=== PATIENT | male | born 1990 | race Caucasian/White ===

== ENCOUNTER 2021-10-28 03:30 | Emergency (ER) | payer BC, SELFPAY ==
[2021-10-28 03:36] VITALS: BP 125/83; PULSE 73; RESP 18; TEMP 35.9; O2SAT 96; BMI 28.4
--- NOTE | 2021-10-28 03:48 | CRLHL7_ITS ---
For Patients: As a result of the Cures Act, medical imaging exams and procedure reports are released immediately into your electronic medical record. You may view this report before your referring provider. If you have questions, please contact your health care provider. INDICATION: Left lower quadrant abdominal pelvic pain TECHNIQUE: CT Abdomen and pelvis without i.v. contrast. Coronal and sagittal reformats were obtained. COMPARISON: None FINDINGS: Lower chest: Unremarkable. Liver: Unremarkable. Spleen: Unremarkable. Pancreas: Unremarkable. Gallbladder: Unremarkable. Kidney: Unremarkable. No kidney or ureteral stones or obstruction seen. Adrenal: Unremarkable. Bowel: A sac-like collection of decompressed small bowel loops are present in the left flank, suggestive of a nonobstructing internal hernia such is a left paraduodenal hernia. The appendix is not identified. Vascular: Unremarkable. Lymph: Unremarkable. Peritoneum: Unremarkable. No pneumoperitoneum is seen. No significant ascites is noted. Pelvis: Unremarkable. Soft tissue: Unremarkable. Bone: Unremarkable for age. IMPRESSION: 1. A sac-like collection of decompressed small bowel loops are present in the left flank, suggestive of a nonobstructing internal hernia such is a left paraduodenal hernia. Dictated by Brooks Johnson MD @ 10/28/2021 4:07:11 AM Please note that all CT scans at this facility use dose modulation, iterative reconstruction, and/or weight-based dosing when appropriate to reduce radiation dose to as low as reasonably achievable. Dictated by: Brooks Johnson MD @ 10/28/2021 04:07:17 (Electronically Signed)
--- NOTE | 2021-10-28 03:49 | ED_ITS ---
HPI - General Adult General Time Seen by Provider: 03:49 Date Seen: 10/28/21 Chief complaint: Abdominal Pain Stated complaint: Stomach Pain Time Seen by Provider: 10/28/21 03:43 Source: patient Mode of arrival: ambulatory Limitations: no limitations History of Present Illness HPI narrative: 31-year-old male who comes in with left lower quadrant pain for the last 4 h ours. Pain is constant, worse with movement. Does tend to go up and down. Had some vomiting initially but that is resolved. No diarrhea. No fever chills. No urinary symptoms. Has not taken anything for this. No radiation into the flank or scrotum. Related Data Home Medications Medication Instructions Recorded Confirmed duloxetine 10/28/21 Allergies Allergy/AdvReac Type Severity Reaction Status Date / Time No Known Drug Allergies Allergy Verified 10/28/21 03:40 Review of Systems Status of ROS: Reports: 10 or more systems reviewed and unremarkable except as noted in History and below PFSH PFSH Social History Smoking Status: Former smoker How often do you have a drink containing alcohol: 2-3 times a week AUDIT-C Alcohol total score: 3 Non-prescribed substance use: denies use Exam Const: Vital Signs, click to edit/add: Vital Signs - 24 hr 10/28/21 03:36 Temperature 96.6 F L Pulse Rate [Right Pulse Oximeter] 73 Respiratory Rate 18 Blood Pressure [Ri ght Upper Arm] 125/83 Pulse Oximetry 96 Oxygen Delivery Me thod Room Air Documenting provider has reviewed patient's vital signs: yes Common normals: no apparent distress, oriented x3, alert and well nourished HENMT: Common normals: normocephalic, head/scalp atraumatic, external ears normal and external nose normal Head and scalp: normocephalic and atraumatic Nose: external nose normal External ear: external ears normal Eye: Common normals: PERRL and conjunctivae normal Conjunctiva: conjunctiva(e) normal Pupil: PERRL Neck & C-Spine: Common normals: full ROM, no lymphadenopathy and supple Chest: Common normals: palpation of chest normal Resp: Common normals: normal respiratory effort and clear to auscultation bilaterally Auscultation: clear to auscultation bilaterally Cardio: Common normals: regular rate, regular rhythm and no murmurs Rate: regular rate Rhythm: regular rhythm GI: Common normals: Normal to inspection, nondistended, normoactive bowel sounds present and soft to palpation Palpation: soft and tender Details: LLQ and LUQ : Common normals: no CVA tenderness Bladder/kidney exam: no CVA tenderness Back & Pelvis: Common normals: no CVA tenderness and thoracic and lumbar spine normal to inspection Extremity: Common normals: normal to inspection, full ROM and no pedal edema Neuro: Common normals: oriented x3, CN's II-XII intact bilaterally and no focal motor deficits Sensorium/orientation: alert Psych: Common normals: mental status grossly normal Skin: Common normals: no rashes or lesions noted General skin exam: no rashes or lesions noted Course Course Hospital Course: Patient seen and examined, prior records reviewed. Differential diagnosis includes but not limited to diverticulitis, colitis, gastritis, constipation, kidney stone. Patient with left lower quadrant pain for about 4 hours, appears uncomfortable on exam, pain is worse with movement and he has left upper and left lower quadrant tenderness. Labs ordered along with CT scan, Toradol and Zofran for symptom management. Reevaluation(s) Reevaluation #1: Labs are reassuring. CT scan demonstrates possible internal hernia without signs of obstruction. Patient is still quite uncomfortable, Dilaudid IV is ordered and will continue to monitor, flu to consult with surgery left labs are returned. Time: 04:48 Reevaluation #2: Care discussed with Dr. Donovan of general surgery. She will review patient's CT scan and call back. Patient recheck. Pain is completely resolved at this point, did not receive Dilaudid. We discussed findings on CT scan. Patient may have an internal hernia that was transiently obstructed or incarcerated and now has released. Will discuss with surgery. Patient has no abdominal distention or vomiting to suggest obstruction at this time. Time: 05:48 Reevaluation #3: Dr. Donovan evaluated the patient emergency department. He is concerned about having surgery and has decided that he would like to wait. He will follow-up with Dr. Donovan next week. Discussed return to emergency department precautions with the patient. Time: 07:44 Vital Signs Vital signs: Initial Vital Signs Temperature 96.6 F L 10/28/21 03:36 Temperature Source Temporal Artery Scan 10/28/21 03:36 Pulse Rate 73 10/28/21 03:36 Respiratory Rate 18 10/28/21 03:36 Blood Pressure 125/83 10/28/21 03:36 Blood Pressure Mean 97 10/28/21 03:36 Blood Pressure Position Sitting 10/28/21 03:36 Pulse Oximetry 96 10/28/21 03:36 Oxygen Delivery Method 10/28/21 03:36 Vital Signs Temperature 96.6 F L 10/28/21 03:36 Pulse Rate 73 10/28/21 03:36 Respiratory Rate 18 10/28/21 03:36 Blood Pressure 125/83 10/28/21 03:36 Pulse Oximetry 96 10/28/21 03:36 Oxygen Delivery Method 10/28/21 03:36 Temperature 96.6 F L 10/28/21 03:36 Pulse Rate 73 10/28/21 03:36 Respiratory Rate 18 10/28/21 03:36 Blood Pressure 125/83 10/28/21 03:36 Pulse Oximetry 96 10/28/21 03:36 Oxygen Delivery Method 10/28/21 03:36 Medical Decision Making Medical Records Medical records reviewed: Yes I reviewed the patient's medical records Lab Data Lab results reviewed: Yes I reviewed the patient's lab results Labs: Lab Results 10/28/21 10/28/21 10/28/21 Range/Units 04:00 04:00 04:15 WBC 4.53 (4.50-11.00) K/uL RBC 5.16 (4.30-5.90) m/uL Hgb 15.0 (13.5-17.5) gm/dL Hct 43.0 (37.0-53.0) % MCV 83 (80-100) fL MCH 29 (26-34) pg MCHC 35 (32-36) gm/dL RDW Coeff of Jaqueline 13.0 (11.5-15.5) % Plt Count 237 (140-440) K/uL Neut % (Auto) 49.1 (42.0-72.0) % Lymph % (Auto) 39.7 (20-44) % [place] % (Auto) 8.6 (0.0-11.0) % Eos % (Auto) 2.2 (0.0-7.0) % Baso % (Auto) 0.4 (0.0-3.0) % Neut # (Auto) 2.22 (1.7-7.0) K/uL Lymph # (Auto) 1.80 (0.90-2.90) K/uL [place] # (Auto) 0.40 (0.00-0.90) K/UL Eos # (Auto) 0.10 (0.00-0.50) K/uL Baso # (Auto) 0.02 (0.00-0.30) K/uL Abs Immat Gran (auto) 0.00 (0.00-0.30) K/uL Sodium 139 (135-149) mmol/L Potassium 4.1 (3.6-5.1) mmol/L Chloride 104 (96-114) mmol/L Carbon Dioxide 27 (20-32) mmol/L BUN 24 (5-24) mg/dL Creatinine 1.0 (0.5-1.5) mg/dL Estimated Creat Clear 120.96 Estimated GFR 103 ml/min Glucose 108 (60-115) mg/dL Lactate (0.5-1.9) mmol/L Calcium 9.7 (8.4-10.6) mg/dL Total Bilirubin 0.5 (0.1-1.5) mg/dL Direct Bilirubin 0.1 (0.0-0.5) mg/dL AST 44 H (12-35) U/L ALT 31 (4-50) U/L Alkaline Phosphatase 66 (40-150) U/L Total Protein 7.5 (6.0-8.3) g/dL Albumin 4.5 (3.3-5.0) g/dL Lipase 102 (23-300) U/L Urine Color (Yellow) Urine Appearance (Clear) Urine pH (5.0-8.5) Ur Specific [place] (1.000-1.030) Urine Protein (Negative) Urine Glucose (UA) (Negative) Urine Ketones (Negative) Urine Blood (Negative) Urine Nitrite (Negative) Urine Bilirubin (Negative) Urine Urobilinogen (0.2-1.0) Ur Leukocyte Esterase (Negative) SARS-CoV-2 (PCR) (Negative) Influenza Type A (PCR) (Negative) Influenza Type B (PCR) (Negative) 10/28/21 10/28/21 10/28/21 Range/Units 04:15 04:35 04:49 WBC (4.50-11.00) K/uL RBC (4.30-5.90) m/uL Hgb (13.5-17.5) gm/dL Hct (37.0-53.0) % MCV (80-100) fL MCH (26-34) pg MCHC (32-36) gm/dL RDW Coeff of Jaqueline (11.5-15.5) % Plt Count (140-440) K/uL Neut % (Auto) (42.0-72.0) % Lymph % (Auto) (20-44) % [place] % (Auto) (0.0-11.0) % Eos % (Auto) (0.0-7.0) % Baso % (Auto) (0.0-3.0) % Neut # (Auto) (1.7-7.0) K/uL Lymph # (Auto) (0.90-2.90) K/uL [place] # (Auto) (0.00-0.90) K/UL Eos # (Auto) (0.00-0.50) K/uL Baso # (Auto) (0.00-0.30) K/uL Abs Immat Gran (auto) (0.00-0.30) K/uL Sodium (135-149) mmol/L Potassium (3.6-5.1) mmol/L Chloride (96-114) mmol/L Carbon Dioxide (20-32) mmol/L BUN (5-24) mg/dL Creatinine (0.5-1.5) mg/dL Estimated Creat Clear Estimated GFR ml/min Glucose (60-115) mg/dL Lactate 0.7 (0.5-1.9) mmol/L Calcium (8.4-10.6) mg/dL Total Bilirubin (0.1-1.5) mg/dL Direct Bilirubin (0.0-0.5) mg/dL AST (12-35) U/L ALT (4-50) U/L Alkaline Phosphatase (40-150) U/L Total Protein (6.0-8.3) g/dL Albumin (3.3-5.0) g/dL Lipase (23-300) U/L Urine Color Yellow (Yellow) Urine Appearance Clear (Clear) Urine pH 6.0 (5.0-8.5) Ur Specific [place] 1.025 (1.000-1.030) Urine Protein Negative (Negative) Urine Glucose (UA) Negative (Negative) Urine Ketones Negative (Negative) Urine Blood Negative (Negative) Urine Nitrite Negative (Negative) Urine Bilirubin Negative (Negative) Urine Urobilinogen 0.2 (0.2-1.0) Ur Leukocyte Esterase Negative (Negative) SARS-CoV-2 (PCR) Negative SARS-CoV-2 (Negative) Influenza Type A (PCR) Negative PCR FLU A (Negative) Influenza Type B (PCR) Negative PCR FLU B (Negative) Imaging Data CT scan - abdomen: Attestation: I have reviewed the pertinent imaging results. Radiologist's impression: 1. A sac-like collection of decompressed small bowel loops are present in the left flank, suggestive of a nonobstructing internal hernia such is a left paraduodenal hernia. Discharge Plan Discharge Clinical Impression: Abdominal pain Patient Disposition: Home, Self-Care Condition: Improved Instructions: Abdominal Pain (ED) Additional Instructions: Your abdominal pain may be due to an internal hernia which is an abnormal opening in the connective tissue of the abdomen. If part of the intestine goes through this opening a can cause pain. Fortunately, since her pain is resolved, it is likely that the intestine has come out of the hernia. You can have recurrence of this symptom. If the pain comes back, especially few of abdominal distension or nausea vomiting which would signal blockage, return to the emergency department. Follow-up with Dr. Donovan of general surgery next week phone number [phone] Activity Level: No Restrictions Discharge Diet: Regular Prescriptions: No Action duloxetine Follow Up/Referrals: Macho Donovan MD [Staff Physician] - Stand Alone Forms: [employer] Info Instructions
[2021-10-28 04:03] LABS: Basophils Absolute Auto 0.02 K/uL (0.00-0.30); Basophils Percent Auto 0.4 % (0.0-3.0); Eosinophils Percent Auto 2.2 % (0.0-7.0); Lymphocytes Percent Auto 39.7 % (20-44); Mean Corpuscular HGB Conc 35 gm/dL (32-36); Mean Corpuscular Hemoglobin 29 pg (26-34); Mean Corpuscular Volume 83 fL (80-100); Monocytes Percent Auto 8.6 % (0.0-11.0); Neutrophils Absolute Auto 2.22 K/uL (1.7-7.0); Neutrophils Percent Auto 49.1 % (42.0-72.0); Platelet Count* 237 K/uL (140-440); Red Blood Count 5.16 m/uL (4.30-5.90); White Blood Count* 4.53 K/uL (4.50-11.00)
[2021-10-28] MEDS: ONDANSETRON 2 MG/ML inj 4 MG IVP (04:03)
[2021-10-28] MEDS: KETOROLAC 15 MG/ML inj IVP (04:03)
[2021-10-28 04:12] LABS: Slide Review Reflex No
[2021-10-28 04:18] LABS: Lactate* 0.7 mmol/L (0.5-1.9)
[2021-10-28 04:18] LABS: Chloride* 104 mmol/L (96-114); Potassium* 4.1 mmol/L (3.6-5.1); Sodium* 139 mmol/L (135-149)
[2021-10-28 04:21] LABS: Blood Urea Nitrogen* 24 mg/dL (5-24); Calcium* 9.7 mg/dL (8.4-10.6); Carbon Dioxide* 27 mmol/L (20-32); Est. Creatinine Clearance* 120.96; Estimated Glomerular Filt Rate 103 ml/min; Glucose* 108 mg/dL (60-115)
[2021-10-28 04:28] LABS: Albumin* 4.5 g/dL (3.3-5.0)
[2021-10-28 04:31] LABS: Alanine Aminotransferase* 31 U/L (4-50); Alkaline Phosphatase* 66 U/L (40-150); Aspartate Amino Transferase* 44 U/L (12-35); Bilirubin Direct* 0.1 mg/dL (0.0-0.5); Bilirubin Total* 0.5 mg/dL (0.1-1.5); Lipase* 102 U/L (23-300); Total Protein* 7.5 g/dL (6.0-8.3)
--- NOTE | 2021-10-28 04:50 | ED.NURSE ---
Pt had been on knees at BS with pain, but now offered pain medication and pain has improved. pt drove here and is from out of town
[2021-10-28 04:55] LABS: Appearance Urine Clear (Clear); Bilirubin Urine Negative (Negative); Blood Urine Negative (Negative); Color Urine Yellow (Yellow); Glucose Urine Negative (Negative); Ketones Urine Negative (Negative); Leukocyte Esterase Urine Negative (Negative); Nitrite Urine Negative (Negative); Protein Urine Negative (Negative); Specific Gravity Urine 1.025 (1.000-1.030); Urobilinogen Urine 0.2 (0.2-1.0)
[2021-10-28 05:33] LABS: PCR FLU A Negative PCR FLU A (Negative); PCR FLU B Negative PCR FLU B (Negative)
[2021-10-28 05:39] LABS: SARS PCR* Negative SARS-CoV-2 (Negative)
--- NOTE | 2021-10-28 07:46 | PM.GSCN ---
History of Present Illness Consult details Date Seen: 10/28/21 Consult date: 10/28/21 Narrative: 31-year-old male presented to emergency room with vomiting and severe abdominal pain and I was asked by Dr. Stevenson to see him in consultation. Patient states that he developed left-sided abdominal pain all of a sudden at 11:30 p.m. at night. The pain was sharp and severe. He vomited multiple times until 1 in the morning. His pain was not improving and he decided to present to the emergency room. Patient had no prior similar episodes. In the emergency room patient was found to have normal CBC and BMP. His liver function tests were normal. Abdominal CT was obtained that showed a left paraduodenal sac containing decompressed small intestine. This was concerning for an internal hernia. The small intestine was not dilated. 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 Smoking Status: Former smoker How often do you have a drink containing alcohol: 2-3 times a week AUDIT-C Alcohol total score: 3 Non-prescribed substance use: denies use Meds Home Medications and Allergies Home Medications Medication Instructions Recorded Confirmed Type duloxetine 10/28/21 History Allergies Allergy/AdvReac Type Severity Reaction Status Date / Time No Known Drug Allergies Allergy Verified 10/28/21 03:40 Exam Narrative: Exam Narrative: General appearance: Alert, cooperative, and in no distress Pulmonary: Chest symmetric, lungs clear bilaterally Cardiovascular Heart: Regular rate and rhythm, S1, S2, no murmurs/rubs/gallops Gastrointestinal Abdominal: soft, not distended, minimally tender to palpation in the left upper quadrant with no peritoneal signs. Skin: Normal skin color, texture, and turgor. No rashes or lesions. Psychiatric: Alert, cooperative, normal affect. Const: Vital Signs, click to edit/add: Vital Signs - 24 hr 10/28/21 03:36 Temperature 96.6 F L Pulse Rate [Right Pulse Oximeter] 73 Respiratory Rate 18 Blood Pressure [Ri ght Upper Arm] 125/83 Pulse Oximetry 96 Oxygen Delivery Me thod Room Air Results Labs Labs: Abnormal lab results 10/28/21 Range/Units 04:15 AST 44 H (12-35) U/L Diabetes panel 10/28/21 10/28/21 Range/Units 04:00 04:15 Sodium 139 (135-149) mmol/L Potassium 4.1 (3.6-5.1) mmol/L Chloride 104 (96-114) mmol/L Carbon Dioxide 27 (20-32) mmol/L BUN 24 (5-24) mg/dL Creatinine 1.0 (0.5-1.5) mg/dL Glucose 108 (60-115) mg/dL Calcium 9.7 (8.4-10.6) mg/dL AST 44 H (12-35) U/L ALT 31 (4-50) U/L Alkaline Phosphatase 66 (40-150) U/L Total Protein 7.5 (6.0-8.3) g/dL Albumin 4.5 (3.3-5.0) g/dL Calcium panel 10/28/21 10/28/21 Range/Units 04:00 04:15 Calcium 9.7 (8.4-10.6) mg/dL Albumin 4.5 (3.3-5.0) g/dL Pituitary panel 10/28/21 Range/Units 04:00 Sodium 139 (135-149) mmol/L Potassium 4.1 (3.6-5.1) mmol/L Chloride 104 (96-114) mmol/L Carbon Dioxide 27 (20-32) mmol/L BUN 24 (5-24) mg/dL Creatinine 1.0 (0.5-1.5) mg/dL Glucose 108 (60-115) mg/dL Calcium 9.7 (8.4-10.6) mg/dL Adrenal panel 10/28/21 10/28/21 Range/Units 04:00 04:15 Sodium 139 (135-149) mmol/L Potassium 4.1 (3.6-5.1) mmol/L Chloride 104 (96-114) mmol/L Carbon Dioxide 27 (20-32) mmol/L BUN 24 (5-24) mg/dL Creatinine 1.0 (0.5-1.5) mg/dL Glucose 108 (60-115) mg/dL Calcium 9.7 (8.4-10.6) mg/dL Total Bilirubin 0.5 (0.1-1.5) mg/dL AST 44 H (12-35) U/L ALT 31 (4-50) U/L Alkaline Phosphatase 66 (40-150) U/L Total Protein 7.5 (6.0-8.3) g/dL Albumin 4.5 (3.3-5.0) g/dL All other labs normal. Imaging Abdomen CT scan report/results: image reviewed Assessment and Plan Assessment and plan (1) Internal hernia: Status: Acute Plan 31-year-old male presented to emergency room with acute abdominal pain that could be due to a left-sided internal hernia and possible gut malrotation. I discussed with the patient his laboratory and CT findings. On CT patient has the sac like structure containing decompressed loops of small intestine on the left side. His duodenum appears to be on the right side and I do not see it tracing to cross the midline. His appendix was not visualized. These findings are concerning for congenital malrotation. I suspect that patient's abdominal pain could have been caused by internal hernia containing small bowel. Patient is currently pain free. I recommended to proceed with exploratory laparotomy and possible [place] procedure. 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 I had a very long discussion with him explaining the danger of not proceeding with surgery and incarceration of his internal hernia that could lead to necrotic small bowel, emergency surgery, future small gut syndrome, and possible . Patient understood the risks and elected to discharge home. He will plan on following up with me in clinic to discuss the surgery at a near future.
== END 2021-10-28 07:50 | disposition home or self-care (01) ==
PROVIDERS: Emergency Provider Family Medicine
DX: R10.32 Left lower quadrant pain (principal)
CPT/HCPCS: 36415; 74176; 80048; 80076; 81003; 83605; 83690; 85025; 87502; 87635; 96374; 96375; 99284; 99285; J1885; J2405

== ENCOUNTER 2021-11-09 10:50 | Inpatient (IN) | payer BC, SELFPAY ==
[2021-11-09] VITALS (25 sets, daily range): BP systolic 88–126; BP diastolic 40–93; PULSE 53–86; RESP 16–24; TEMP 36.4–37.5; O2SAT 94–99; BMI 28.3
[2021-11-09] MEDS: LACTATED RINGERS 1000 ML 1,000 ML 100 ML IV ×3 (11:15→17:27)
[2021-11-09] MEDS: fentaNYL 100 MCG/2 ML inj IVP (11:30)
[2021-11-09] MEDS: MIDAZOLAM HCL 1 MG/ML inj IVP (11:30)
--- NOTE | 2021-11-09 11:31 | PM.GSHP ---
History of Present Illness History of Present Illness Date Seen: 11/09/21 Chief complaint: surgery Narrative: Demian Calzada is a 31 year old male presented To clinic for follow-up on his abdominal pain. Patient was recently seen in the emergency room department with severe onset of abdominal pain. A CT scan showed periduodenal hernia with no dilated loops of bowel in that hernia. I recommended to proceed with exploratory laparotomy due to concern for malrotation and internal hernia however patient's pain resolved, and he did not want to miss time off of work. Patient presented today to clinic in severe pain again. Patient states that today the pain started at 9:30 a.m. in the morning. The pain was in the same location and felt the same as 2 weeks ago. He did not have any nausea or vomiting. In the last 2 weeks he was doing well and tolerating regular diet. 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 Smoking Status: Former smoker How often do you have a drink containing alcohol: 2-3 times a week AUDIT-C Alcohol total score: 3 Non-prescribed substance use: denies use Meds Home Medications and Allergies Home Medications Medication Instructions Recorded Confirmed Type duloxetine 10/28/21 11/09/21 History Allergies Allergy/AdvReac Type Severity Reaction Status Date / Time No Known Drug Allergies Allergy Verified 10/28/21 03:40 Exam Narrative: Exam Narrative: General appearance: Alert, cooperative, and in no distress Pulmonary: Chest symmetric, lungs clear bilaterally Cardiovascular Heart: Regular rate and rhythm, S1, S2, no murmurs/rubs/gallops Gastrointestinal Abdominal: soft, not distended, tender to palpation in the left mid abdomen and tender to percussion in the left mid abdomen, patient feels pain in the left abdomen when palpating on the right. Skin: Normal skin color, texture, and turgor. No rashes or lesions. Psychiatric: Alert, cooperative, normal affect. Assessment and Plan Assessment and plan (1) Abdominal pain: Status: Acute Plan 31-year-old male presented to clinic with a new onset of severe abdominal pain that is similar to his episode 2 weeks ago and concerning for an internal hernia. I discussed with the patient my clinical findings. I suspect that patient has recurrence of his pain since his internal hernia has not been addressed. I gave patient 2 options -1 is going to the emergency room and obtaining another CT scan to evaluate if there are any new findings since 2 weeks ago. The other option is to proceed with exploratory laparotomy since his pain feels the same as it did 2 weeks ago and pretty severe. Patient has been hunched over on the floor of the clinic room due to pain. Patient would like to proceed with surgery. The procedure of exploratory laparotomy was discussed in detail. The risks associated the procedure including infection, bleeding, the need for possible bowel resection, and possible [place] procedure that includes appendectomy were all discussed with the patient, and he agreed to proceed. Patient will be admitted to the hospital postoperatively.
[2021-11-09] MEDS: CEFAZOLIN 2 GM INJ IVP (12:05)
[2021-11-09 13:06] LABS: SARS PCR* Negative SARS-CoV-2 (Negative)
[2021-11-09] MEDS: BUPIVACAINE 0.25 %/EPI 1:200K 30 ml INJECTION (14:32)
--- NOTE | 2021-11-09 14:55 | P.GSOP_ITS ---
Operative Note Date of procedure: 11/09/21 Type of Procedure: 1. Exploratory laparotomy. 2. Lysis of adhesions with reduction of paraduodenal hernia. 3. Incidental Appendectomy. Procedure Description: After discussing the risks and benefits of the procedure, the patient signed informed consent.? The operative site was marked and the patient was brought to the operating room and placed on the operating table in supine position.? Care was taken to pad the patient's pressure points.?? The patient was then intubated by anesthesia.? Lau catheter was placed under sterile conditions.? The operative site was then prepped and draped in the usual sterile fashion.? A time-out was then performed. A midline laparotomy incision was made with a scalpel in the superior abdomen and curving on the left side of the umbilicus. Subcutaneous fat and anterior fascia were incised with cautery. The anterior fascia was grasped with Tarun clamps and posterior fascia and peritoneum were identified and grasped with Sarah clamps. The abdomen was entered with Metzenbaum scissors. This incision was then extended superiorly and inferiorly with cautery. By palpation and then visualization no adhesions to the anterior abdominal wall were noted. A large Watson retractor was placed into the incision. I turned my attention to the left side of the abdomen. There was a thin hernia sac covering small intestine on the left side of the abdomen. The intestine was reduced from this hernia sac and was viable. I then proceeded with excision of the hernia sac. The hernia sac appeared to be lateral to the ligament of Treitz and was extending from the distal transver se colon mesentery inferiorly and medial to the descending colon mesentery. This hernia sac was fairly vascular. This was most likely a hernia through fossa of [place]. With careful dissection the hernia sac was mobilized off the colon mesentery. The transverse colon and descending colon mesentery was examined so that it is not divided when the hernia sac was excised. The hernia sac was thin and excised with cautery. A larger vessel going into the hernia sac was divided with clamps and ties. I was not able to preserve this without leaving an opening for small bowel herniation. The small bowel was run from the ligament of Treitz to the terminal ileum. The ligament of Treitz was in place arguing against malrotation. The right and left colon were also in their normal locations.The jejunum had chronic dilation to slightly larger than normal in size. The proximal ileum had inflammatory thickened adhesions of the small bowel mesentery to the proximal transverse colon mesentery and omentum. Those adhesions were carefully taken down with cautery and with Metzenbaum scissors to avoid injury to the small bowel mesentery. A small nodule was identified adjacent to the small bowel lumen in the proximal ileum. It was difficult to tell if this was a small diverticulum or inflammatory nodule. This was excised with cautery and Metzenbaum scissors. The area where it seemed to be attached to the small intestine was oversewn with 3-0 silk suture. This nodule was sent to pathology. The thickened inflammatory tissue overlying the small bowel mesentery was lysed with cautery by gently scoring the peritoneum overlying the small intestine. The small bowel mesentery did not appear to be foreshortened. no additional adhesions were noted. I elected to proceed with incidental appendectomy. The cecum was fairly redundant and located in the right pelvis. This was gently grasped and an appendix was visualized. The appendix was long but no inflammation was noted. The appendiceal mesentery was divided with cautery and clamps and Vicryl ties. The appendix was then clamped with a clamp at the base cysts and tied just distal to the clamp with 0-0 Vicryl tie and 2-0 Vicryl tie. The appendix was divided just below the clamp with a scalpel and sent to pathology. Appendiceal mucosa was cauterized. Surgical field was examined and no bleeding was identified. The small bowel mesentery was gently placed on the right side of the abdomen. Omentum was placed over the small intestine. The fascia of the midline incision was then closed with 2 running 0-0 Maxon hoffman tures. The midline incision was irrigated with normal saline. Local anesthetic was injected at the midline incision. The dermis was then reapproximated with 3-0 Vicryl suture. The skin was closed with a running 4-0 Monocryl stitch. The Lau catheter was removed at the end of the procedure. Steri-Strips and sterile dressings were placed over the midline incision. All counts were correct at the end of the case. ? The patient was then woken and transported to the recovery area in stable condition. ? The patient tolerated the procedure well. Findings: Left-sided paraduodenal hernia. Anesthesia: GETA Surgeon: Macho Donovan MD Estimated blood loss (mL): 10 Condition: stable Disposition: PACU
--- NOTE | 2021-11-09 15:05 | SUR.OPER ---
RYAN REMOVED AT THE END OF THE CASE. TIP INTACT.
[2021-11-09] MEDS: MEPERIDINE 25 MG/ML INJ 12.5 MG IVP (15:10)
--- NOTE | 2021-11-09 15:11 | W.ANESCHARGE ---
Anesthesia Charges Start Date/Time Anesthesia Start Date: 11/09/21 Anesthesia Start Time: 11:50 Stop Date/Time Anesthesia Stop Date: 11/09/21 Anesthesia Stop Time: 15:04 Summary Emergency: Yes
[2021-11-09] MEDS: fentaNYL 100 MCG/2 ML inj 50 MCG IVP (15:40)
[2021-11-09] MEDS: HYDROmorphone 0.5 mg/0.5 ml inj IVP ×4 (17:28→23:04)
--- NOTE | 2021-11-09 22:44 | PC.NURSE ---
Shift [id number]- Patient arrives to floor at approximately 1600. He is drowsy, BPs are decreased- see charting. He complains of pain 2-5/10 this shift, dilaudid administered for pain control. He is painful while sitting up to chair this evening and returns to bed soon after. He is voiding. NG is at LIS with little output. He denies nausea. Tolerating ice chips. Dressing in clean, dry and intact. He is slightly flushed and seems warm tonight. Temporal temp is 99.5 degrees, oral temp is 98.1 degrees.
[2021-11-10] MEDS: LACTATED RINGERS 1000 ML 1,000 ML 100 ML IV ×3 (02:22→21:28)
[2021-11-10] MEDS: HYDROmorphone 0.5 mg/0.5 ml inj IVP ×7 (02:23→22:08)
[2021-11-10 03:00] VITALS: BP 104/63; PULSE 86; RESP 18; TEMP 37.6; O2SAT 98
--- NOTE | 2021-11-10 06:38 | PC.NURSE ---
END OF SHIFT NOTE: PT CALM AND COOPERATIVE. PT AMBULATES INDEPENDENTLY, HOWEVER DOES NEED ASSISTANCE DISCONNECTING NG AND IV POLE. LSCTA. PT DENIES CP, SOB, N/V. PT RATES LOWER ABDOMINAL PAIN 6-8/10 WITH RELIEF FROM PRN DILAUDID, ACTIVE ICE AND SPLINTING WITH PILLOW. PT EDUCATED TO ADJUST BED TO HIGHEST SITTING POSITION IN ORDER TO DECREASE STRAIN TO PT?S BODY WHEN GETTING UP TO AMBULATE. NG PLACED AT 66CM WITH 60MLS OF GREEN OUTPUT. TENDER ABDOMEN, VERY HYPOACTIVE BSx4. PT HAS NOT PASSED FLATUS, NOR HAD BM. MIDLINE ABDOMINAL INCISION DRESSING CDI.
[2021-11-10 06:52] LABS: Basophils Percent Auto 0.1 % (0.0-3.0); Hematocrit 37.7 % (37.0-53.0); Hemoglobin* 12.8 gm/dL (13.5-17.5); Immature Granulocytes Abs Auto 0.02 K/uL (0.00-0.30); Lymphocytes Percent Auto 13.2 % (20-44); Mean Corpuscular HGB Conc 34 gm/dL (32-36); Mean Corpuscular Hemoglobin 29 pg (26-34); Mean Corpuscular Volume 86 fL (80-100); Monocytes Percent Auto 7.5 % (0.0-11.0); Platelet Count* 220 K/uL (140-440); RDW Coefficient of Variation % 13.4 % (11.5-15.5); Red Blood Count 4.38 m/uL (4.30-5.90); White Blood Count* 11.23 K/uL (4.50-11.00)
[2021-11-10 06:59] LABS: Slide Review Reflex No
[2021-11-10 07:00] VITALS: BP 120/66; PULSE 97; RESP 20; TEMP 36.8; O2SAT 97
[2021-11-10 07:12] LABS: Chloride* 102 mmol/L (96-114); Sodium* 137 mmol/L (135-149)
[2021-11-10 07:15] LABS: Blood Urea Nitrogen* 21 mg/dL (5-24); Carbon Dioxide* 28 mmol/L (20-32); Creatinine* 1.1 mg/dL (0.5-1.5); Est. Creatinine Clearance* 109.96; Estimated Glomerular Filt Rate 92 ml/min; Glucose* 110 mg/dL (60-115)
[2021-11-10 07:16] LABS: Calcium* 8.6 mg/dL (8.4-10.6)
--- NOTE | 2021-11-10 10:42 | PC.NURSE ---
Pt having pain issues - pain rated no less than 7/10 since AM assessment. Dilaudid q 1-2HR at this time. NG sticker replaced this AM due to coming loose - still at 66cm. NG on LIS with 60cc's output since 0600 of grn/yellow bile. Vitals supportive. afebrile. Ice to abdomen. midline incision covered with dressing, CDI. LS CTA. Spouse at bedside. LR continues at 100 cc/hr. Sips and chips. BS active, pt denies flatus. no BM since surgery.
[2021-11-10 11:00] VITALS: BP 112/67; PULSE 70; RESP 18; TEMP 36.7; O2SAT 95
--- NOTE | 2021-11-10 11:12 | PM.GSPN ---
Subjective Subjective Date Seen: 11/10/21 Interval history: Patient did okay overnight. He continues to require frequent pain medication. He did not pass gas. Denies nausea vomiting. He only ambulated to the bathroom. Urinated a couple times. Exam Narrative: Exam Narrative: Abdomen: Soft, not distended, tender to palpation on the left, surgical incision is covered with clean and dry dressing. Const: Vital Signs, click to edit/add: Vital Signs - 24 hr 11/09/21 11:30 11/09/21 11:35 11/09/21 15:00 Temperature 98.8 F 97.5 F L Pulse Rate 83 78 84 Pulse Rate [Left P ulse Oximeter] Respiratory Rate 18 18 24 Blood Pressure 117/93 H 118/75 124/89 Blood Pressure [Ri ght Arm] Pulse Oximetry 98 98 96 Oxygen Delivery Me thod Nasal Cannula Room Air Oxygen Flow Rate 3 11/09/21 15:05 11/09/21 15:10 11/09/21 15:15 Temperature Pulse Rate 78 65 73 Pulse Rate [Left P ulse Oximeter] Respiratory Rate 20 20 18 Blood Pressure 103/40 L 120/67 113/82 Blood Pressure [Ri ght Arm] Pulse Oximetry 97 96 98 Oxygen Delivery Me thod Oxygen Flow Rate 11/09/21 15:20 11/09/21 15:25 11/09/21 15:30 Temperature 98.8 F Pulse Rate 60 66 53 L Pulse Rate [Left P ulse Oximeter] Respiratory Rate 18 20 20 Blood Pressure 106/53 L 92/54 L 105/54 L Blood Pressure [Ri ght Arm] Pulse Oximetry 96 96 97 Oxygen Delivery Me thod Oxygen Flow Rate 11/09/21 15:35 11/09/21 15:40 11/09/21 16:00 Temperature 98.5 F 98.4 F Pulse Rate 54 L 56 L Pulse Rate [Left P ulse Oximeter] 66 Respiratory Rate 16 16 20 Blood Pressure 101/51 L 100/49 L Blood Pressure [Ri ght Arm] 95/46 L Pulse Oximetry 95 95 95 Oxygen Delivery Me thod Room Air Oxygen Flow Rate 11/09/21 16:15 11/09/21 16:30 11/09/21 16:45 Temperature Pulse Rate Pulse Rate [Left P ulse Oximeter] 74 77 77 Respiratory Rate 18 18 18 Blood Pressure Blood Pressure [Ri ght Arm] 97/54 L 98/51 L 101/54 L Pulse Oximetry 96 96 96 Oxygen Delivery Me thod Room Air Room Air Room Air Oxygen Flow Rate 11/09/21 17:00 11/09/21 17:30 11/09/21 18:00 Temperature Pulse Rate Pulse Rate [Left P ulse Oximeter] 78 72 72 Respiratory Rate 18 18 18 Blood Pressure Blood Pressure [Ri ght Arm] 102/57 L 102/57 L 89/62 L Pulse Oximetry 95 94 96 Oxygen Delivery Me thod Room Air Room Air Room Air Oxygen Flow Rate 11/09/21 18:30 11/09/21 19:00 11/09/21 20:00 Temperature 98.5 F Pulse Rate Pulse Rate [Left P ulse Oximeter] 86 86 Respiratory Rate 18 18 Blood Pressure Blood Pressure [Ri ght Arm] 105/60 102/63 88/53 L Pulse Oximetry 99 98 Oxygen Delivery Me od Room Air Room Air Oxygen Flow Rate 11/09/21 20:15 11/09/21 21:00 11/09/21 22:00 Temperature 98.1 F Pulse Rate Pulse Rate [Left P ulse Oximeter] 80 83 Respiratory Rate 18 18 Blood Pressure Blood Pressure [Ri ght Arm] 107/58 L 114/65 103/59 L Pulse Oximetry 97 96 Oxygen Delivery Me thod Room Air Room Air Oxygen Flow Rate 11/09/21 22:00 11/09/21 23:00 11/10/21 03:00 Temperature 99.5 F 99.3 F 99.6 F Pulse Rate Pulse Rate [Left P ulse Oximeter] 77 86 Respiratory Rate 18 18 Blood Pressure Blood Pressure [Ri ght Arm] 126/64 104/63 Pulse Oximetry 94 98 Oxygen Delivery Me thod Room Air Room Air Oxygen Flow Rate 11/10/21 07:00 Temperature 98.3 F Pulse Rate Pulse Rate [Left P ulse Oximeter] 97 Respiratory Rate 20 Blood Pressure Blood Pressure [Ri ght Arm] 120/66 Pulse Oximetry 97 Oxygen Delivery Me thod Room Air Oxygen Flow Rate 0 Progress Note: A&P Assessment and plan (1) Internal hernia: Problem details: paraduodenal hernia Status: Acute Assessment and Plan: 31-year-old male s/p exploratory laparotomy, lysis of adhesions, and repair of paraduodenal hernia POD 1. Patient is doing well. We will work on getting his abdominal pain under control. Will start him on Toradol today. If patient's pain is still not well controlled and he is requiring hourly doses of IV Dilaudid, will consider start him a on a RESIDENTIAL COUNSELOR. Will continue with NG tube until he is starting to pass gas. Patient should ambulate at least 3 times today.
[2021-11-10] MEDS: KETOROLAC 30 MG/ML inj IVP ×2 (11:20→17:26)
[2021-11-10 15:00] VITALS: BP 107/64; PULSE 71; RESP 18; TEMP 36.8; O2SAT 94
[2021-11-10] MEDS: phenoL 1.4 % THROAT SPRAY 1 SPRAY MUCOUS MEM (16:28)
--- NOTE | 2021-11-10 19:52 | PC.NURSE ---
Pt pain better controlled with toradol and dilaudid. clamped to abmulate and no nausea reported with this. chips are for comfort only. Dr. Donovan updated at 1900.
[2021-11-10 20:04] VITALS: BP 126/72; PULSE 87; RESP 18; TEMP 36.6; O2SAT 94
[2021-11-10] MEDS: ACETAMINOPHEN 325 MG TABLET 650 MG PO (21:30)
[2021-11-11] VITALS (7 sets, daily range): BP systolic 108–128; BP diastolic 63–79; PULSE 62–88; RESP 16–20; TEMP 36.6–37.5; O2SAT 94–99
[2021-11-11] MEDS: KETOROLAC 30 MG/ML inj IVP ×3 (00:07→18:55)
--- NOTE | 2021-11-11 06:57 | PC.NURSE ---
Shift note: Pt c/o pain and a head ache, RN treated per eMAR, pain relieved from 12/19 to 06/19 and was able to rest overnight. He is afebrile, voiding, hasn't pass gas yet.
[2021-11-11] MEDS: LACTATED RINGERS 1000 ML 1,000 ML 100 ML IV (07:57)
--- NOTE | 2021-11-11 08:39 | PM.GSPN ---
Subjective Subjective Date Seen: 11/11/21 Interval history: Patient is doing very well this morning. He did pass gas this morning and is starving. Denies any nausea or vomiting. No bowel movement yet. His pain is under better control this morning and he has been up walking. Exam Narrative: Exam Narrative: General: Alert and oriented, no acute distress. Lying comfortably in bed. HEENT: NG tube in place minimal spit like output in tube. Respiratory: Equal breath rise bilaterally, maintained on room air CV: Regular rhythm rate, well perfused Abdomen: Dressings taking down. Incision with Steri-Strips in place clean/dry/intact. Abdomen is soft, appropriately tender over incision sites with no guarding or rebound. Const: Vital Signs, click to edit/add: Vital Signs - 24 hr 11/10/21 11:00 11/10/21 15:00 11/10/21 20:04 Temperature 98.1 F 98.3 F 98 F Pulse Rate [Left P ulse Oximeter] 70 71 87 Respiratory Rate 18 18 18 Blood Pressure [Ri ght Arm] 112/67 107/64 126/72 Pulse Oximetry 95 94 94 Oxygen Delivery Me thod Room Air Room Air Room Air Oxygen Flow Rate 0 0 11/11/21 00:00 11/11/21 04:00 Temperature 98.3 F Pulse Rate [Left P ulse Oximeter] 76 87 Respiratory Rate 20 18 Blood Pressure [Ri ght Arm] 108/63 Pulse Oximetry 95 94 Oxygen Delivery Me thod Room Air Room Air Oxygen Flow Rate Progress Note: A&P Assessment and plan (1) S/P exploratory laparotomy: Status: Acute Assessment and Plan: Patient is postop day 2 exploratory laparotomy and excision of internal hernia sac. Vital signs stable overnight. Pain is well controlled and abdomen benign this morning. He has started to pass gas and is feeling hungry. His NG tube was removed at bedside this morning. Will plan for clears this morning, patient was advised to start slow. -DC IV fluids, clear liquids -IV and p.o. pain meds as needed -SCDs and Lovenox for DVT prophylaxis. Encourage ambulation
[2021-11-11] MEDS: ENOXAPARIN 40 MG/0.4 ML INJ SUBCUT (11:11)
[2021-11-11] MEDS: HYDROCODONE-ACETAMIN 5-325 MG 1 TAB PO (14:09)
--- NOTE | 2021-11-11 14:33 | PC.NURSE ---
VSS AND AFEBRILE. BS HYPOACTIVE BUT PATIENT REPORTS HE HAS PASSED GAS. NG TUBE DC'D BY DR. PEREZ. PATIENT TOLERATING SMALL AMOUNTS OF CLEAR LIQUIDS WITH NO NAUSEA OR C/O INCREASED PAIN. PATIENT DOES REPORT FEELING BLOATED BUT HAS ONLY RECEIVED TORADOL ONCE AND NORCO 1 TAB FOR PAIN OF 2-3/10. PATIENT AMBULATING IN HALLWAY. SURGICAL INCISION ISAIHA WITH STERI-STRIPS INTACT.
[2021-11-11] MEDS: ACETAMINOPHEN 325 MG TABLET 650 MG PO (18:56)
--- NOTE | 2021-11-11 22:17 | PC.NURSE ---
Shift [id number]- Patient rates pain 2-3, 5-6/10 this shift, headache this afternoon, relief with PRN pain medication- see eMAR. He is up ad perez. Saline locked. Voiding. This evening, he is able to drink apple juice and tolerate it, but said he wasn't able to do broth additional to that. No BM.
[2021-11-12 03:00] VITALS: BP 130/80; PULSE 64; RESP 16; TEMP 36.9; O2SAT 95
[2021-11-12] MEDS: HYDROCODONE-ACETAMIN 5-325 MG 1 TAB PO ×3 (06:11→17:57)
--- NOTE | 2021-11-12 07:00 | PC.NURSE ---
[id number]: Patient pleasant and cooperative with cares. Appeared to rest well during noc. Afebrile. Rates pain 0/10 at beginning of shift and 5/10 at 0600. [place] x1 administered for relief. Active ice to sites. Steri strips to mid-line incision C/D/I. Independent in room. BS hypoactive in all quadrants. Tolerating clears. Denies N/V. Passing gas.
[2021-11-12 08:15] VITALS: BP 141/81; PULSE 81; RESP 18; TEMP 36.7; O2SAT 97
[2021-11-12] MEDS: ENOXAPARIN 40 MG/0.4 ML INJ SUBCUT (09:04)
[2021-11-12] MEDS: SODIUM CHLORIDE 0.9 % (FLUSH) 10 ML SYRINGE 5 ML IVF ×2 (09:05→23:41)
--- NOTE | 2021-11-12 10:00 | PM.GSPN ---
Subjective Subjective Date Seen: 11/12/21 Interval history: Patient is doing well this morning. Denies any significant abdominal pain. Has been tolerating clear liquids, but reports he feels full very fast and is unable to eat a lot. Denies any nausea or vomiting. He has continued to pass gas but no bowel movement. He has been ambulating the halls without difficulty. He does admit to feeling bloated. Exam Narrative: Exam Narrative: General: Alert and oriented, no acute distress. Lying comfortably in bed. Abdomen: Soft, mild distention, nontender to palpation. Steri-Strips in place over midline incision clean/dry / intact. Const: Vital Signs, click to edit/add: Vital Signs - 24 hr 11/11/21 11:45 11/11/21 15:25 11/11/21 19:11 Temperature 99.1 F 99.5 F 99.2 F Pulse Rate [Left P ulse Oximeter] 79 62 66 Respiratory Rate 18 16 16 Blood Pressure [Ri ght Arm] 122/74 126/76 128/79 Pulse Oximetry 98 95 98 Oxygen Delivery Me thod Room Air Room Air Room Air Oxygen Flow Rate 0 11/11/21 23:00 11/12/21 03:00 11/12/21 08:15 Temperature 98.2 F 98.5 F 98.0 F Pulse Rate [Left P ulse Oximeter] 68 64 81 Respiratory Rate 16 16 18 Blood Pressure [Ri ght Arm] 121/77 130/80 141/81 H Pulse Oximetry 99 95 97 Oxygen Delivery Me thod Room Air Room Air Room Air Oxygen Flow Rate 11/12/21 08:15 Temperature Pulse Rate [Left P ulse Oximeter] 81 Respiratory Rate 18 Blood Pressure [Ri ght Arm] Pulse Oximetry Oxygen Delivery Me thod Oxygen Flow Rate Progress Note: A&P Assessment and plan (1) S/P exploratory laparotomy: Status: Acute Assessment and Plan: Patient is postop day 3 exploratory laparotomy and excision of internal hernia sac. Vital signs stable overnight. Patient is tolerating clear liquids and continues to pass gas, no evidence of bowel movement. Will await advancement of diet until patient has a bowel movement, given his reported abdominal distension after eating and hypoactive bowel sounds. -Continue clear liquid -IV and p.o. pain meds as needed - suppository p.r.n. -SCDs and Lovenox for DVT prophylaxis. Encourage ambulation
[2021-11-12 12:00] VITALS: BP 131/84; PULSE 68; RESP 16; TEMP 36.9; O2SAT 99
[2021-11-12 15:05] VITALS: BP 123/84; PULSE 65; RESP 16; TEMP 36.9; O2SAT 98
--- NOTE | 2021-11-12 17:14 | PC.NURSE ---
End of Shift: Patient pleasant and cooperative. Afebrile. Steri-strips to midline incision C/D/I. Rating pain 1-3/10 and PRN [place] given x1. Bowel sounds active and passing gas. Had a BM x1. Updated MD and diet advanced to full liquids for lunch and tolerated with no nausea or increase in pain. Up independently and walking in hallway several times this shift.
[2021-11-12] MEDS: ACETAMINOPHEN 325 MG TABLET 650 MG PO (17:57)
--- NOTE | 2021-11-12 18:56 | PC.NURSE ---
[id number]- Patient rates pain 2-4/10 this afternoon and also a headache. PRN pain medication administered- see eMAR. He eats regular diet for supper (mohawk toast), going slow. He stated it felt 'weird', but no increase in pain, nausea or bloatedness. He is up ad perez.
[2021-11-12 19:00] VITALS: BP 131/98; PULSE 97; RESP 16; TEMP 36.8; O2SAT 97
[2021-11-12 23:00] VITALS: BP 128/82; PULSE 64; RESP 16; TEMP 37; O2SAT 98
[2021-11-13 03:00] VITALS: BP 139/81; PULSE 61; RESP 16; TEMP 36.7; O2SAT 98
[2021-11-13] MEDS: HYDROCODONE-ACETAMIN 5-325 MG 1 TAB PO ×2 (04:39→10:14)
--- NOTE | 2021-11-13 05:40 | PC.NURSE ---
[id number]: Patient pleasant and cooperative. Pain controlled with PRN [place] x1. Active ice to abdomen. Independent. Steri strips to midline incision C/D/I. Passing gas. Active BS. Had a BM on previous shift, no BM on this shift. Tolerating regular diet. Denies N/V. Dea at bedside. Eager to d/c.
[2021-11-13 07:00] VITALS: BP 172/90; PULSE 60; RESP 14; TEMP 36.6; O2SAT 99
[2021-11-13] MEDS: ENOXAPARIN 40 MG/0.4 ML INJ SUBCUT (08:39)
[2021-11-13] MEDS: SODIUM CHLORIDE 0.9 % (FLUSH) 10 ML SYRINGE 5 ML IVF (08:39)
--- NOTE | 2021-11-13 09:51 | PM.DS1 ---
DS: Providers Provider Date Seen: 11/13/21 Date of admission: 11/09/21 10:50 Primary care physician: Not a Local Provider Admitting Clinician: Macho Donovan MD Attending Physician on discharge: Macho Donovan MD DS: Summary Hospital Course Hospital Course: Patient was admitted from clinic with increasing abdominal pain, nausea and vomiting. He was taken to the OR for an exploratory laparotomy and underwent lysis of adhesions with repair of his paraduodenal hernia. Postoperatively he did have an NG tube, which was able to be removed on postop day 2. At the time of discharge she was tolerating a regular diet, he had had return of bowel function with a documented bowel movement. His pain was well controlled with oral medications. He was ambulating independently without difficulty. Status at Discharge Functional status at discharge: independent ambulation Time Spent with Patient Time attestation: Total time spent providing and/or coordinating discharge services: Exam Narrative: Exam Narrative: General: Alert and oriented, no acute distress Abdomen: Soft, nontender, nondistended. Incision in midline with Steri-Strips in place clean/dry/intact Const: Vital Signs, click to edit/add: Vital Signs - 24 hr 11/12/21 12:00 11/12/21 15:05 11/12/21 19:00 Temperature 98.4 F 98.4 F 98.2 F Pulse Rate [Left P ulse Oximeter] 68 65 97 Respiratory Rate 16 16 16 Blood Pressure [Ri ght Arm] 131/84 123/84 131/98 H Pulse Oximetry 99 98 97 Oxygen Delivery Me thod Room Air Room Air Room Air Oxygen Flow Rate 11/12/21 23:00 11/13/21 03:00 11/13/21 07:00 Temperature 98.6 F 98.1 F Pulse Rate [Left P ulse Oximeter] 64 61 60 Respiratory Rate 16 16 14 Blood Pressure [Ri ght Arm] 128/82 139/81 Pulse Oximetry 98 98 Oxygen Delivery Me thod Room Air Room Air Oxygen Flow Rate 0 0 11/13/21 07:00 Temperature 98 F Pulse Rate [Left P ulse Oximeter] 60 Respiratory Rate 14 Blood Pressure [Ri ght Arm] 172/90 H Pulse Oximetry 99 Oxygen Delivery Me thod Room Air Oxygen Flow Rate Discharge Plan Discharge Disposition: Home, Self-Care Date of Admission: 11/09/21 10:50 Consulting Providers: Gary Tobin DO Primary Care Provider: Provider,Not a Local Condition: Improved Anticipated Discharge Date/Time: 11/13/21 09:46 Discharge Medications: New hydrocodone-acetaminophen 5-325 mg Tablet 1 - 2 tab PO Q6H PRN (Reason: Pain) Qty: 15 0RF senna 8.6 mg capsule 8.6 mg PO DAILY PRN (Reason: constipation) Qty: 90 0RF Rx Instructions: Please take stool softeners while on narcotic pain medicine. Stop if having greater than 2 bowel movements per day. Continued buspirone 10 mg tablet 10 mg PO BID Label Comments: TAKE ONE TABLET BY MOUTH TWICE DAILY start when 5mg tablet is completed. duloxetine 30 mg capsule,delayed release(DR/EC) 30 mg PO DAILY Label Comments: TAKE ONE CAPSULE BY MOUTH DAILY along with 60 MG capsule TO equal 90 MG daily., take in THE morning. DO not CRUSH OR chew. duloxetine 60 mg capsule,delayed release(DR/EC) 60 mg PO DAILY Label Comments: take one capsule BY MOUTH daily. take along with 30 MG capsule TO equal 90 MG. take in THE MORNING. DO not chew OR CRUSH. duloxetine Discharge Orders: Discharge Order (Routine); Ordered 11/13/21 Ordered By: Taylor Guerra Patient Education: Bowel Obstruction (GEN) Activity Restrictions/Additional Instructions: Activity as tolerated. Avoid strenuous activity. No lifting greater than 20 lb for 6 weeks. Activity Level: No strenuous activity Discharge Diet: Regular Follow Up Appointments: Taylor Guerra MD [Staff Physician] - (Please schedule 2 week follow-up with Dr. Donovan at the [facility] in [facility].) Provider,Not a Local [Primary Care Provider] - Forms: [employer] Info Instructions Discharge Comments: Okay to shower. Do not soak in a bathtub or go swimming for 2 weeks.
--- NOTE | 2021-11-13 10:42 | PC.NURSE ---
Discharge: Patient pleasant and cooperative. Patient hypertensive this morning, but vitally stable, lungs clear, BS WNL, IV's removed, catheter intact. Patient rated abdominal pain at most 6/10, 2 norco tabs given. Patient independent in room. Midline surgical incision with steri strips C/D/I. Patient passing gas, no BM today, but urinating. Patient tolerating regular diet, had juice and popsicle for breakfast eating 100%. Patient signed belongings sheet and discharge form. Patient had no further questions regarding discharge education. Patient left the floor by foot, with spouse and belongings at 1040.
== END 2021-11-13 10:40 | disposition home or self-care (01) | DRG 225 ==
PROVIDERS: Admitting Provider Surgery; Visit Provider Surgery
PROC: 0DQV0ZZ Repair Mesentery, Open Approach (ICD-10-PCS; CPT 49000; principal; 2021-11-09 11:30)
DX: K46.0 Unspecified abdominal hernia with obstruction, without gangrene (principal); K66.0 Peritoneal adhesions (postprocedural) (postinfection); F41.9 Anxiety disorder, unspecified; F32.A Depression, unspecified
CPT/HCPCS: 00790; 36415; 80048; 85025; 87635; 88302; 88304; 88305; 99140; A9270; J0131; J0330; J0690; J1100; J1170; J1650; J1885; J2175; J2250; J2405; J2704; J2710; J3010; J7120